=== PATIENT | female | born 1975 | race Caucasian/White ===

== ENCOUNTER 2018-06-06 19:00 | Inpatient (IN) | payer OTHER ==
[~2018-06-06] VITALS: Ht 152.4 cm; Wt 56.7 kg
[2018-06-06 19:06] VITALS: Ht 152.4 cm; Wt 56.7 kg
[2018-06-06 19:49] LABS: BASOPHIL % 0.4 % (0-2); PLATELET COUNT 217 x10^3mcL (130-400)
[2018-06-06 19:52] LABS: RED CELL DISTRIBUTION WIDTH 22.1 % (11.5-14.5)
[2018-06-06 20:02] LABS: CALCIUM 8.5 mg/dL (8.5-10.1); CARBON DIOXIDE 18.7 mmol/L (21-32); CHLORIDE SERUM 104 mmol/L (98-107); CREATININE SERUM 0.8 mg/dL (0.6-1.0); GFR1 > 60 mL/min; GLUCOSE SERUM 97 mg/dL (74-106); POTASSIUM SERUM 3.8 mmol/L (3.5-5.1); SODIUM SERUM 137 mmol/L (136-145)
[2018-06-06 20:05] LABS: ALKALINE PHOSPHATASE 83 U/L (46-116); ALT/SGPT 16 U/L (14-59); AST/SGOT 17 U/L (15-37); BILIRUBIN TOTAL 0.1 mg/dL (0.20-1.00); LIPASE 133 IU/L (73-393); TOTAL PROTEIN, SERUM 7.3 g/dL (6.4-8.2)
[2018-06-06 20:06] LABS: ALBUMIN 3.1 g/dL (3.4-5.0)
[2018-06-06 20:51] LABS: rbc morphology (normal/abnorm) ABNORMAL (NORMAL)
[2018-06-06] MEDS ORDERED: NEXIUM40 MG PO (21:15)
[2018-06-06] MEDS ORDERED: TOPAMAX25 MG (21:16)
[2018-06-06] MEDS ORDERED: SOMA350 MG PO (21:17)
[2018-06-06] MEDS ORDERED: NOR10T PO (21:17)
[2018-06-06] MEDS ORDERED: NEU300 PO (21:17)
[2018-06-06] MEDS ORDERED: SEROQUEL400 M1 PO (21:18)
[2018-06-06] MEDS ORDERED: MOT800 PO (21:18)
[2018-06-06 23:06] VITALS: BP 90/53
[2018-06-07 04:25] LABS: IRON 32 ug/dL (50-170); TOTAL IRON BINDING CAPACITY 426 ug/dL (250-450)
[2018-06-07 06:11] VITALS: BP 92/51
[2018-06-07 08:17] LABS: microscopic required? NO
[2018-06-07 08:30] VITALS: BP 119/80
[2018-06-07 08:48] LABS: UA SPECIFIC GRAVITY <=1.005 (1.005-1.035); urine erythrocyte NEGATIVE (NEGATIVE)
[2018-06-07 11:15] VITALS: BP 102/49
[2018-06-07] MEDS ORDERED: HEP100I IV (12:51)
[2018-06-07] MEDS ORDERED: HEP5I IV (12:52)
[2018-06-07] MEDS ORDERED: [UNRECOGNIZED DRUG - CODE] IV (12:53)
[2018-06-07] MEDS ORDERED: ECO81 PO (12:53)
[2018-06-07] MEDS ORDERED: LIPITOR80 MG PO (12:53)
[2018-06-07] MEDS ORDERED: NIT0.4 SL (12:55)
[2018-06-07 13:10] VITALS: BP 98/62
== END 2018-06-07 14:12 | disposition short-term general hospital (02) | DRG 311 ==
LOC: ED 19:00 → IC 21:41 → DU 21:41 → IC 06-07 11:03
PROVIDERS: Emergency Medicine; Family Medicine
DX: I24.9 Acute ischemic heart disease, unspecified (principal); E44.0 Moderate protein-calorie malnutrition; G35 Multiple sclerosis; D50.9 Iron deficiency anemia, unspecified; F12.10 Cannabis abuse, uncomplicated; Z95.0 Presence of cardiac pacemaker; Z68.26 Body mass index [BMI] 26.0-26.9, adult; Z87.891 Personal history of nicotine dependence
CPT/HCPCS: 83880; J1327; J1644; J2270; J2765; J3490; J7030; J7050; Q0092